=== PATIENT | female | born 1960 | race Caucasian/White ===

== ENCOUNTER 2020-12-08 10:36 | Emergency (ER) | payer MEDICAID, SELFPAY ==
[2020-12-08 10:36] VITALS: BP 152/85; PULSE 98; RESP 16; TEMP 36.9; O2SAT 99; BMI 21.5
--- NOTE | 2020-12-08 11:41 | CT_ITS ---
STUDY: CT ABDOMEN AND PELVIS WITH CONTRAST REASON FOR EXAM: Female, 60 years old. Diffuse upper abd pain. PRIOR APPENDECTOMY RADIATION DOSAGE (If Supplied By Facility): CTDIvol = ( 8.91 ) mGy, DLP = ( 356.98 ) mGycm TECHNIQUE: Transaxial images were obtained from the dome of the diaphragm to the symphysis pubis without oral contrast. IV 70 mL Isovue-300 was administered. Sagittal and coronal images were reconstructed. Individualized dose optimization techniques were used for this CT. COMPARISON: None. FINDINGS: The visualized lung bases are unremarkable. Coronary artery calcification. There is a 8.1 mm cyst in the inferior lateral portion of the right lobe of the liver. There is a Eber''s lobe of the liver. Normal gallbladder and extrahepatic biliary system. Normal spleen. Normal pancreas. Normal bilateral adrenal glands. Normal right kidney. Normal left kidney. Normal visualized stomach. Normal small intestine. Moderate amount of fecal material is seen in the right hemicolon. The patient is status post appendectomy. There is diffuse atherosclerotic calcification of the abdominal aorta and its major visceral branches, without a demonstrated aneurysm. Normal inferior vena cava. Normal retroperitoneum. Normal urinary bladder. Prominent venous opacification in the region of the broad ligaments bilaterally. Enlarged fibroid uterus. Normal abdominal wall. There are diffuse degenerative changes of the visualized lumbar spine. CT/Abdomen/Pelvis W IV Cont ONLY IMPRESSION: Enlarged fibroid uterus with the prominence of the venous structures in the pelvis. Eber''s lobe of the liver. The patient is status post appendectomy. Electronically Signed: Austin Ying MD at 12:56 EDT , Service support ,
--- NOTE | 2020-12-08 11:41 | ED.VIS.GI ---
HPI HPI - GI History of Present Illness Chief Complaint: Abd Pain Informant: patient Abdominal Pain/Flank Pain Onset: Weeks Context: Gradual Onset Timing: Continuous Quality: Cramping and Dull Location: Epigastric, RUQ and LUQ Current Severity: Mild Maximum Severity: Mild Nausea/Vomiting/Emesis GI Symptom: Negative for Nausea and Vomiting Diarrhea/Melena/Hematochezia GI Symptom: Negative for Diarrhea, Melena and Hematochezia Associated Symptoms Associated Symptoms: Negative for Dysuria, Frequency, Hematuria and Urgency Narrative Narrative: 60-year-old female past medical history of prior appendectomy. She is also had polypectomy before via lower endoscopy. States that week ago she had back pain was seen and a negative urinalysis was placed on naproxen. Says her back pain seemed to go away but now she is got epigastric and upper quadrant abdominal pain. She denies nausea vomiting or diarrhea. She denies fever or chills. She denies weight loss. She denies melena or hematemesis. Nothing particular makes the pain better or worse. She denies any dysuria. Prior similar symptoms: No Recent Illness/Hospitalization: No PFSH PFSH Medical History no medical history no medical history Home Medications aspirin [Aspir-Low] 81 mg PO DAILY 03/26/16 [History Last Taken Unknown] clindamycin HCl 300 mg PO [id number] #40 capsule 03/26/16 [Rx Last Taken Unknown] genistein [I-Cool] 30 mg PO DAILY 03/26/16 [History Last Taken Unknown] multivitamin [Daily Multiple Vitamin] 1 ea PO DAILY 03/26/16 [History Last Taken Unknown] Allergy/AdvReac Type Severity Reaction Status Date / Time codeine Allergy Rash Verified 12/08/20 10:38 Penicillins [PCN] Allergy Rash Verified 12/08/20 10:38 Social History Smoking Status: Current every day smoker tobacco type: cigarettes ROS ROS ED ROS Narrative Upper abdominal pain Review of Systems ROS Unobtainable: Denies due to encephalopathy Constitutional Constitutional ED: Denies chills, fever(s) or subjective ENT ENT ED: Denies ear pain Cardiovascular Cardiovascular: Denies chest pain Respiratory/Chest Respiratory/Chest: Denies cough or dyspnea Gastrointestinal Gastrointestinal: Reports abdominal pain; Denies constipation, diarrhea, melena, nausea or vomiting Genitourinary Genitourinary ED: Denies dysuria, hematuria or urinary frequency Musculoskeletal Musculoskeletal: Denies myalgias Integumentary Denies rash Neurologic Neurologic: Denies headache(s) Psychiatric Psychiatric: Denies depression Endocrine Endocrinology: Denies polyuria Hematologic/Lymphatic Hematologic/Lymphatic: Denies easy bruising Allergic/Immunologic Allergic/Immunologic ED: Denies urticaria EXAM Physical Exam Narrative Exam Narrative: Middle-aged female no acute distress vital signs stable afebrile. HEENT exam unremarkable. Moist with memories. Neck nontender no lymphadenopathy. Lungs clear to auscultation bilaterally. Heart regular rhythm no murmur. Abdomen soft nondistended normal bowel sounds no peritoneal signs. She points to her upper quadrant and epigastric region of her abdomen with tenderness but is not reproducible. There is no pulsatile mass. No signs of obstruction or distention. No hernia. Moving all 4 extremities. Calves are nontender without edema. Back nontender. Neurologically she is awake and alert. Const Vital Signs: 12/08/20 10:36 Temperature 98.4 F Temperature Source Temporal Pulse Rate 98 Respiratory Rate 16 Blood Pressure 152/85 H Blood Pressure Mean 107 Pulse Ox 99 Oxygen Delivery Method Room Air HEENT Reports moist mucous membranes normocephalic and atraumatic; Negative for trauma or tenderness Eyes PERRL and EOMs intact bilaterally Neck no lymphadenopathy, supple and no JVD General: Negative for tenderness Resp normal respiratory effort and clear to auscultation bilaterally Auscultation: Negative for rales, rhonchi or wheezes Cardio regular rate, regular rhythm, S1 normal heart sound, S2 normal heart sound and no murmurs GI non-tender, non-distended and no masses Inspection: Negative for abdominal distention Auscultation: normoactive bowel sounds Palpation: soft; Negative for tender, guarding, rigid or rebound tenderness present Back/Spine no CVA tenderness Neuro CN's II-XII intact bilaterally and moves all extremities Sensorium / Orientation: alert, oriented to person, oriented to place, oriented to time and orientation impaired; Negative for confused, lethargic or stuporous Motor Exam: strength 5/5 throughout Psych mental status grossly normal Skin Lesions: no lesions Rashes: no rashes MDM MDM MDM Narrative Medical decision making narrative: Work-up and CAT scan.Older female with upper abdominal pain is not reproducible. Repeat exam patient doing well at 1:07 PM. Abdomen benign. We went over all of her test results and she will be discharged home. Lab Data Attestation: I reviewed the patient's lab results. Lab results narrative: CBC White count 9. Hemoglobin 15. Electrolytes normal gap of 4 normal creatinine. Normal liver enzymes. Normal lipase at 73. Urinalysis normal no whites or red cells. No bacteria nor nitrates. Labs: Laboratory Results - last 24 hr 12/08/20 12/08/20 12/08/20 11:03 11:47 11:47 WBC 9.6 RBC 4.38 Hgb 15.1 H Hct 43.6 MCV 99.5 H MCH 34.5 H MCHC 34.6 RDW Std Deviation 45.2 H RDW Coeff of Jordy 12.3 Plt Count 297 MPV 8.9 Immature Gran % (Auto) 0.400 Neut % (Auto) 63.4 Lymph % (Auto) 27.3 [place] % (Auto) 7.5 Eos % (Auto) 1.1 Baso % (Auto) 0.3 Absolute Neuts (auto) 6.1 Absolute Lymphs (auto) 2.63 Nucleated RBC % 0 Sodium 140 Potassium 4.3 Chloride 108 H Carbon Dioxide 28.0 Anion Gap 4 L BUN 6 L Creatinine 0.66 Estim Creat Clear Calc 73.48 Est GFR (MDRD) Af Amer 119 Est GFR (MDRD) Non-Af 98 BUN/Creatinine Ratio 9.1 L Glucose 107 H Calcium 9.8 Total Bilirubin 0.80 AST 13 L ALT 19 Alkaline Phosphatase 91 Total Protein 7.6 Albumin 4.2 Globulin 3.4 Albumin/Globulin Ratio 1.2 Lipase 73 Urine Color Yellow Urine Clarity Clear Urine pH 6.5 Ur Specific [place] 1.010 Urine Protein Negative Urine Glucose (UA) Normal Urine Ketones Negative Urine Occult Blood Negative Urine Nitrite Negative Urine Bilirubin Negative Urine Urobilinogen Normal Ur Leukocyte Esterase Negative Urine RBC 0 SEEN Urine WBC 0 SEEN Ur Squamous Epith Cells 0 SEEN Urine Bacteria 0 SEEN Urine Mucus 0 SEEN Radiography Diagnostic Testing: Clinical Impression(s) from Imaging Studies Abdomen/Pelvis CT 12/08/20 11:41 IMPRESSION: Enlarged fibroid uterus with the prominence of the venous structures in the pelvis. Eber''s lobe of the liver. The patient is status post appendectomy. Electronically Signed: Austin Ying MD at 12:56 EDT , Service support , Discharge Plan Triage Chief Complaint: Abd Pain ED Provider: Tin Alston Dx/Rx/DC Orders Clinical Impression: Abdominal pain Instructions: Abdominal Pain Prescriptions: No Action multivitamin [Daily Multiple] 1 EACH tablet 1 ea PO DAILY RF: 0 aspirin [Aspir-Low] 81 MG Tablet.Dr 81 mg PO DAILY RF: 0 genistein [i-Cool] 30 MG tablet 30 mg PO DAILY RF: 0 clindamycin HCl 300 MG capsule 300 mg PO [id number] Qty: 40 RF: 0 Primary Care Provider: Last Squires Referrals: Last Squires MD [Primary Care Provider] - 3-5 Days if not improving Activity Restrictions/Additional Instructions: No specific cause of your abdominal pain. Follow-up with your primary care physician as needed. Disposition Disposition: Home, Self Care
[2020-12-08 11:53] LABS: Bacteria 0 SEEN /hpf (None Seen); Mucous, Urine 0 SEEN /hpf (<or=2+); Red Blood Cells-Urine 0 SEEN /hpf (0-5); Squamous Epithelial Cells - UA 0 SEEN /hpf (5-10); White Blood Cells 0 SEEN /hpf (0-5)
[2020-12-08 11:54] LABS: Absolute Lymphocyte Count 2.63 X10^3/uL (0.83-4.51); Absolute Neutrophil Count 6.1 X10^3/uL (2.0-7.7); Basophil# 0.03 X10^3/uL; Basophil% 0.3 % (0-1); Eosinophil# 0.11 X10^3/uL; Eosinophils% 1.1 % (0-5); Hematocrit 43.6 % (37-47); Hemoglobin 15.1 g/dL (12.0-15.0); Lymphocyte # 2.63 X10^3/ul (0.83-4.51); Lymphocyte % 27.3 % (19-41); Mean Corp Hgb Conc 34.6 g/dL (32-36); Mean Corpuscular Hgb 34.5 pg (27.0-32.0); Mean Corpuscular Volume 99.5 fL (81-99); Mean Platelet Vol. 8.9 fl (6.2-12.0); Monocyte# 0.72 X10^3/uL; Monocyte% 7.5 % (0-10); NRBC Flagged by Analyzer 0 % (0-5); Neutrophil # 6.11 X10^3/uL (2.7-7.7); Neutrophil % 63.4 % (47-70); Platelet Count 297 K/mm3 (150-450); RBC Distribution Width CV 12.3 % (11.6-14.6); RBC Distribution Width SD 45.2 fl (35.1-43.9); Red Blood Count 4.38 M/mm3 (4.2-5.4); White Blood Count 9.6 K/mm3 (4.4-11.0)
[2020-12-08 11:54] LABS: Color, Urine Yellow (Yellow); Glucose, Dipstick Normal (Normal); Ketone-Dipstick Negative (Negative); Leukocyte Esterase-Dipstick Negative /ul (Negative); Nitrite-Dipstick Negative (Negative); Occult Blood-Urine Negative /ul (Negative); Protein-Dipstick Negative (Negative); Urine Bilirubin Dipstick Negative (Negative); Urine Clarity Clear (Clear); Urine Urobilinogen Normal (Normal); Urine pH 6.5 (5.0 - 8.0)
[2020-12-08 12:09] LABS: ALB/GLOB Ratio 1.2 RATIO (0.9-2.4); AST(SGOT) 13 U/L (15-37); Alanine Aminotransfer ALT/SGPT 19 U/L (13-56); Albumin, Serum 4.2 g/dL (3.2-5.0); Alkaline Phosphatase 91 U/L (45-117); Anion Gap 4 (5-15); BUN 6 mg/dL (7-18); BUN/Creat Ratio 9.1 RATIO (10-20); Calcium,Total 9.8 mg/dL (8.5-10.1); Chloride 108 mmol/L (98-107); Creatinine, Serum 0.66 mg/dL (0.55-1.02); EST Glomerular Filtration Rate 98 mL/min (>60); Est Glom Filt Rate - Afr Amer 119 mL/min (>60); Estimated Creatinine Clearance 73.48 ml/min; Globulin 3.4 g/dL (2.2-4.2); Glucose 107 mg/dL (74-106); Lipase 73 U/L (73-393); Potassium 4.3 mmol/L (3.5-5.1); Protein, Total 7.6 g/dL (6.4-8.2); Sodium Level 140 mmol/L (136-145)
[2020-12-08 13:15] VITALS: BP 122/81; PULSE 85; RESP 16; O2SAT 96
--- NOTE | 2020-12-08 13:16 | ED.RN ---
REVIEWED D/C INSTRUCTIONS, FOLLOW UP CARE, AND S/S THAT WOULD WARRANT A RETURN TO THE ED WITH PT. PT VERBALIZED AN UNDERSTANDING AND DENIES FURTHER QUESTIONS FOR THIS RN. PT SKIN P/W/D, RESP EVEN AND UNLABORED, PT A&O X 3, NO DISTRESS NOTED. PT AMBULATED OUT OF ED, GAIT STEADY.
== END 2020-12-08 13:16 | disposition home or self-care (01) ==
PROVIDERS: Emergency Provider Emergency Medicine; PCP Family Medicine
DX: R10.10 Upper abdominal pain, unspecified (principal); F17.210 Nicotine dependence, cigarettes, uncomplicated; Z90.49 Acquired absence of other specified parts of digestive tract
CPT/HCPCS: 74177; 80053; 81001; 83690; 85025; 99283; Q9967; A4216

== ENCOUNTER 2022-05-31 10:17 | Emergency (ER) | payer MEDICAID, SELFPAY ==
[2022-05-31 10:19] VITALS: BP 147/90; PULSE 80; RESP 18; TEMP 35.9; O2SAT 96; BMI 20.9
--- NOTE | 2022-05-31 10:33 | EDS_ITS ---
HPI History of Present Illness Chief Complaint: Upper Extremity Injury Informant: patient Narrative Narrative: Patient presents with a bump on her left wrist which she has had for about 4 months. She states it seems to grow at times. Is never gone completely away. It is a little bit sore when she presses on it. No fevers chills. No drainage. No erythema warmth. No known trauma. She has not yet seen anyone for this. It is worse with frequent use of the wrist and pressing on it. It is better with rest. [facility] Medical History (Updated 05/31/22 @ 10:46 by Mali Gonzales) Wrist pain Home Medications aspirin 81 mg tablet,delayed release (Aspir-Low) 81 mg PO DAILY 03/26/16 [History Last Taken Unknown] clindamycin HCl 300 mg capsule 300 mg PO [id number] ##40 03/26/16 [Rx Last Taken Unknown] genistein 30 mg tablet (i-Cool) 30 mg PO DAILY 03/26/16 [History Last Taken Unknown] multivitamin (Daily Multiple tablet) 1 ea PO DAILY 03/26/16 [History Last Taken Unknown] Allergy/AdvReac Type Severity Reaction Status Date / Time codeine Allergy Rash Verified 05/31/22 10:21 Penicillins [PCN] Allergy Rash Verified 05/31/22 10:21 Social History Smoking Status: Current every day smoker tobacco type: cigarettes ROS ROS ED Constitutional Constitutional ED: Denies chills or fever(s) Gastrointestinal Gastrointestinal: Denies nausea or vomiting Musculoskeletal Musculoskeletal: Reports other Details: See history of present illness. Integumentary Denies abscess, Abrasions or rash Neurologic Neurologic: Denies paresthesias or weakness Hematologic/Lymphatic Hematologic/Lymphatic: Denies easy bleeding, easy bruising or lymphadenopathy EXAM Physical Exam Narrative Exam Narrative: Patient awake alert no acute distress. HEENT shows no rash or trauma Cardiorespiratory breathing is easy and unlabored. No audible wheezing. Extremities there is no peripheral edema or swelling. She does have a firm area over the distal lateral radius a little lateral to Kimber's tubercle. This is about 1 cm or less around. It does feel firm but is mobile on top of the bone. It feels most consistent with a ganglion cyst. No real skin changes over it. No sign of infection or erythema. No limitation of motion but any motion about that area does increase the soreness slightly. Skin shows no notable skin changes. Const Vital Signs: 05/31/22 10:19 Temperature 96.6 F L Temperature Source Temporal Pulse Rate 80 Respiratory Rate 18 Blood Pressure 147/90 H Blood Pressure Mean 109 Pulse Ox 96 Oxygen Delivery Method Room Air MDM MDM MDM Narrative Medical decision making narrative: My independent interpretation of the patient's three-view x-ray left wrist shows no sign of acute fracture dislocation or bony abnormality. Final reading is also negative. I think this does represent ganglion cyst. Patient is comfortable following up. I explained that there is really no intervening treatment that is effective. She tried some splinting but it just did not help and it did not work with her work situation. We discussed reasons to return. Discharge Plan Triage Chief Complaint: Upper Extremity Injury ED Provider: Jaun Lewis Dx/Rx/DC Orders Clinical Impression: Ganglion cyst of dorsum of left wrist Instructions: ED Ganglion Cyst Prescriptions: No Action multivitamin [Daily Multiple] 1 EACH tablet 1 ea PO DAILY aspirin [Aspir-Low] 81 MG tablet,delayed release (DR/EC) 81 mg PO DAILY genistein [i-Cool] 30 MG tablet 30 mg PO DAILY clindamycin HCl 300 MG capsule 300 mg PO [id number] Qty: 40 0RF Primary Care Provider: Last Squires Referrals: Last Squires MD [Primary Care Provider] - Keith Kaur DO [Med Staff - Active Staff] - 1 Week Disposition Disposition: Home, Self Care
--- NOTE | 2022-05-31 10:38 | RAD_ITS ---
STUDY: X-RAY - LEFT WRIST REASON FOR EXAM: Female, 61 years old. Pain, swollen area distal radius TECHNIQUE: 3 view(s) of the wrist were obtained. COMPARISON: None. FINDINGS: Normal visualized distal radius and ulna. Normal radiocarpal articulation. Normal distal radioulnar articulation. Normal carpal bones. Normal carpal articulations. Normal carpometacarpal articulation of the thumb. Normal second through fifth carpometacarpal articulations. Normal visualized metacarpal bones. The soft tissue structures are unremarkable. RAD/Wrist min 3 Views IMPRESSION: Normal x-ray examination of the wrist. Electronically Signed: Austin Ying MD at 10:54 EDT ,
== END 2022-05-31 11:11 | disposition home or self-care (01) ==
PROVIDERS: Emergency Provider Emergency Medicine; PCP Family Medicine; Visit Provider Emergency Medicine
DX: M67.432 Ganglion, left wrist (principal); F17.210 Nicotine dependence, cigarettes, uncomplicated; Z79.82 Long term (current) use of aspirin
CPT/HCPCS: 73110; 99282

== ENCOUNTER 2022-08-25 13:04 | Emergency (ER) | payer MEDICAID, SELFPAY ==
[2022-08-25 13:05] VITALS: BP 131/88; PULSE 85; RESP 18; TEMP 36.3; O2SAT 98; BMI 20.9
--- NOTE | 2022-08-25 13:26 | EX.ED.DYSGE1 ---
HPI <ARACELI Zamora - Last Filed: 08/25/22 15:31> History of Present Illness Chief Complaint: Flank Pain Narrative Narrative: Patient 61-year-old female with history of anxiety who smokes 1 pack/day drinks 3-4 times a week presents to the emergency department for 3 to 4 days of left flank pain that radiates down the left leg. Patient states she does have history of sciatica however does not feel like this. Last week she states that she had a gastrointestinal illness. She is no longer having vomiting, nausea, diarrhea. Patient states that most of the pain is worse at nighttime when it starts to her left flank, left lower back to raise down her left leg. Patient's her left leg feels achy and she has difficulty falling asleep. Today she was on her feet at work, she decided come to get checked out. She denies any fever or chills. Denies any nausea vomiting. Denies a history of any kidney stone. PFS <ARACELI Zamora - Last Filed: 08/25/22 15:31> [facility] Medical History (Updated 08/25/22 @ 15:40 by Reva Rae) Anxiety Wrist pain Home Medications multivitamin (Daily Multiple tablet) 1 ea PO DAILY 03/26/16 [History Last Taken Unknown] paroxetine HCl 10 mg tablet 10 mg PO 06/28/22 [History Last Taken Unknown] cyclobenzaprine 10 mg tablet 10 mg PO TID PRN Muscle Spasm #15 TABLETS 08/25/22 [Rx Last Taken Unknown] naproxen 500 mg tablet (Naprosyn) 500 mg PO BID PRN pain #20 tabs 08/25/22 [Rx Last Taken Unknown] Allergy/AdvReac Type Severity Reaction Status Date / Time codeine Allergy Rash Verified 08/25/22 13:07 Penicillins [PCN] Allergy Rash Verified 08/25/22 13:07 Family History (Updated 06/28/22 @ 15:25 by Alexandrea Zurita) Mother Breast cancer Surgical History History of History of carpal tunnel release Hx of appendectomy Social History (Updated 06/28/22 @ 15:25 by Alexandrea Zurita) household members: spouse Smoking Status: Current every day smoker tobacco type: cigarettes alcohol intake: current ROS <JACKSON ZamoraC - Last Filed: 08/25/22 15:31> ROS ED ROS Narrative Constitutional: Negative for fever, chills, weight loss, weakness Eyes: Negative for vision loss, vision change, double vision ENT: Negative for any sore throat, ear pain, congestion Cardiovascular: Negative for any chest pain, tightness, palpitations Respiratory: Negative for any cough, sputum production, hemoptysis, dyspnea, dyspnea on exertion, orthopnea Gastrointestinal: Negative for any abdominal pain, nausea, vomiting, diarrhea, constipation, blood in stool, blood in vomit : Negative for any urinary frequency, retention, blood in urine. Positive for dysuria, bladder pressure Muscle skeletal: Negative for any muscle joint pain, stiffness, myalgias, arthralgias, neck pain. Positive for left back pain that raise on the left leg. Neurological: Negative for any headache, syncope, numbness or tingling, dizziness Skin: Negative for any rashes, lumps, itching, abrasions, lacerations Psychiatric: Negative for any depression, anxiety, stress, suicidal ideation, homicidal ideation Hematologic: Negative for any easy bruising, excessive bruising, easy bleeding Allergies: Negative for any eczema, hives, rash EXAM <ARACELI Zamora - Last Filed: 08/25/22 15:31> Physical Exam Narrative Exam Narrative: Vital signs reviewed. HEET: Head normocephalic atraumatic, TMs clear bilaterally. Posterior pharynx is clear, moist mucous membranes. Nares clear bilaterally. Neck: Supple with no lymphadenopathy or tenderness. No signs of meningismus, negative jolt sign. Cardiac: Regular rate and rhythm no murmurs gallops or rubs, equal peripheral pulses bilaterally. Respiratory: Lungs clear to auscultation bilaterally. No chest tenderness. Abdomen: Soft, nontender, nondistended. No abdominal bruit or pulsatile masses. No hepatosplenomegaly Extremities: No peripheral edema, no signs of gross trauma or deformity. Active full range of motion of all extremities. Neuro: Cranial nerves II through XII intact, no focal neurological deficits. Skin: Clean dry and intact with no rash, purpura, petechiae, vesicles or pustules. Backs/flank: No CVA tenderness, no midline spinal tenderness, no deformity. Positive for pain the left mid back, left lower spine, positive straight leg. Pain to the left buttock during straight leg test. No red flag signs. Psych: Normal mood and affect. No SI, HI or acute psychosis. Const Vital Signs: 08/25/22 13:05 08/25/22 15:42 08/25/22 13:04 Temperature 97.3 F L Temperature Source Temporal Pulse Rate 85 85 Respiratory Rate 18 19 H Respiratory Effort Normal Respiratory Pattern Normal Blood Pressure 131/88 H 130/79 H Blood Pressure Mean 102 Pulse Ox 98 98 Oxygen Delivery Method Room Air <Dr. Jace Olivo DO - Last Filed: 08/25/22 16:51> Physical Exam Const Vital Signs: 08/25/22 13:05 08/25/22 15:42 08/25/22 13:04 Temperature 97.3 F L Temperature Source Temporal Pulse Rate 85 85 Respiratory Rate 18 19 H Respiratory Effort Normal Respiratory Pattern Normal Blood Pressure 131/88 H 130/79 H Blood Pressure Mean 102 Pulse Ox 98 98 Oxygen Delivery Method Room Air MDM <ARACELI Zamora - Last Filed: 08/25/22 15:31> [facility] Lab Data Labs: Laboratory Results - last 24 hr 08/25/22 08/25/22 13:10 13:35 WBC 8.8 RBC 3.99 L Hgb 13.5 Hct 40.8 MCV 102.3 H MCH 33.8 H MCHC 33.1 RDW Std Deviation 49.6 H RDW Coeff of Ojrdy 13.1 Plt Count 261 MPV 8.8 Immature Gran % (Auto) 0.300 Neut % (Auto) 51.1 Lymph % (Auto) 39.8 [place] % (Auto) 7.2 Eos % (Auto) 1.3 Baso % (Auto) 0.3 Absolute Neuts (auto) 4.5 Absolute Lymphs (auto) 3.50 Nucleated RBC % 0 Sodium 139 Potassium 3.8 Chloride 107 Carbon Dioxide 27.0 Anion Gap 5 BUN 10 Creatinine 0.79 Estim Creat Clear Calc 57.86 Est GFR (MDRD) Af Amer 96 Est GFR (MDRD) Non-Af 79 BUN/Creatinine Ratio 12.7 Glucose 92 Calcium 9.0 Urine Color Yellow Urine Clarity Clear Urine pH 6.0 Ur Specific [place] 1.030 Urine Protein Negative Urine Glucose (UA) Normal Urine Ketones 5 H Urine Occult Blood Negative Urine Nitrite Negative Urine Bilirubin Negative Urine Urobilinogen Normal Ur Leukocyte Esterase 25 H Urine RBC 0 SEEN Urine WBC 0-5 SEEN Ur Squamous Epith Cells 0 SEEN Urine Bacteria 0 SEEN Urine Mucus 0 SEEN Radiography Diagnostic Testing: Clinical Impression(s) from Imaging Studies Abdomen/Pelvis CT 08/25/22 13:49 IMPRESSION: Stable small cyst in the right lobe of the liver. Eber''s lobe of the liver. Sigmoid diverticulosis. No evidence of a obstructive uropathy at this time. Electronically Signed: Austin Ying MD at 14:25 EDT , Treatment and Re-Evaluation :: Patient appears generally well, patient appears nontoxic, vital signs are stable. Patient presents to the emergency department with left back pain that raise to the left leg. Physical examination was consistent with muscle skeletal strain, sciatica. However patient does have pain and pressure in her bladder, she did receive a CT scan to ensure there is no obstructing uropathy. Patient did receive laboratory values, CBC was unremarkable, chemistries are unremarkable, urinalysis was negative for any infection, no blood noted. Patient CT scan of the abdomen pelvis showed stable small cyst of the right lobe of the liver, Eber's lobe of the liver. Sigmoid diverticulosis. No evidence of an obstructive uropathy at this time. At this time, patient be diagnosed with muscle strain, sciatica. She will be given a prescription for naproxen as well as Flexeril. She instructed to perform gentle stretching, ice and heat. There were no red flag signs, no evidence of suspect any cauda equina, spinal abscess. She will follow-up with her primary care physician on August 30. She instructed return for any worsening symptoms <Dr. aJce Olivo, DO - Last Filed: 08/25/22 16:51> [facility] Lab Data Labs: Laboratory Results - last 24 hr 08/25/22 08/25/22 13:10 13:35 WBC 8.8 RBC 3.99 L Hgb 13.5 Hct 40.8 MCV 102.3 H MCH 33.8 H MCHC 33.1 RDW Std Deviation 49.6 H RDW Coeff of Jordy 13.1 Plt Count 261 MPV 8.8 Immature Gran % (Auto) 0.300 Neut % (Auto) 51.1 Lymph % (Auto) 39.8 [place] % (Auto) 7.2 Eos % (Auto) 1.3 Baso % (Auto) 0.3 Absolute Neuts (auto) 4.5 Absolute Lymphs (auto) 3.50 Nucleated RBC % 0 Sodium 139 Potassium 3.8 Chloride 107 Carbon Dioxide 27.0 Anion Gap 5 BUN 10 Creatinine 0.79 Estim Creat Clear Calc 57.86 Est GFR (MDRD) Af Amer 96 Est GFR (MDRD) Non-Af 79 BUN/Creatinine Ratio 12.7 Glucose 92 Calcium 9.0 Urine Color Yellow Urine Clarity Clear Urine pH 6.0 Ur Specific [place] 1.030 Urine Protein Negative Urine Glucose (UA) Normal Urine Ketones 5 H Urine Occult Blood Negative Urine Nitrite Negative Urine Bilirubin Negative Urine Urobilinogen Normal Ur Leukocyte Esterase 25 H Urine RBC 0 SEEN Urine WBC 0-5 SEEN Ur Squamous Epith Cells 0 SEEN Urine Bacteria 0 SEEN Urine Mucus 0 SEEN Radiography Diagnostic Testing: Clinical Impression(s) from Imaging Studies Abdomen/Pelvis CT 08/25/22 13:49 IMPRESSION: Stable small cyst in the right lobe of the liver. Eber''s lobe of the liver. Sigmoid diverticulosis. No evidence of a obstructive uropathy at this time. Electronically Signed: Austin Ying MD at 14:25 EDT , Treatment and Re-Evaluation :: Patient appears generally well, patient appears nontoxic, vital signs are stable. Patient presents to the emergency department with left back pain that raise to the left leg. Physical examination was consistent with muscle skeletal strain, sciatica. However patient does have pain and pressure in her bladder, she did receive a CT scan to ensure there is no obstructing uropathy. Patient did receive laboratory values, CBC was unremarkable, chemistries are unremarkable, urinalysis was negative for any infection, no blood noted. Patient CT scan of the abdomen pelvis showed stable small cyst of the right lobe of the liver, Eber's lobe of the liver. Sigmoid diverticulosis. No evidence of an obstructive uropathy at this time. At this time, patient be diagnosed with muscle strain, sciatica. She will be given a prescription for naproxen as well as Flexeril. She instructed to perform gentle stretching, ice and heat. There were no red flag signs, no evidence of suspect any cauda equina, spinal abscess. She will follow-up with her primary care physician on August 30. 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 I perform my own [id number] evaluation. I agree with the plan of work-up. Nontraumatic left flank pain for the last 4 days. Constant waxing waning no injuries. No worsening pain with movement. No urinary symptoms. No history of kidney stones. Exam tender left flank there is no rash. No abdominal tenderness. Nontoxic. Patient labs drawn urine ordered flank scan for further evaluation. Negative. Urine with 25 leukocytes asymptomatic culture sent. Patient to monitor for rash. Prescription for symptom control to use needed. Outpatient follow-up. Discharge Plan Triage Chief Complaint: Flank Pain ED Midlevel Provider: Sarmad Worthington ED Provider: Jace Olivo Dx/Rx/DC Orders Clinical Impression: Sciatica, Acute lumbar myofascial strain Instructions: ED Sciatica Prescriptions: New naproxen [Naprosyn] 500 mg tablet 500 mg PO BID PRN (Reason: pain) Qty: 20 0RF cyclobenzaprine 10 mg tablet 10 mg PO TID PRN (Reason: Muscle Spasm) Qty: 15 0RF No Action paroxetine HCl 10 mg tablet 10 mg PO multivitamin [Daily Multiple] 1 EACH tablet 1 ea PO DAILY Primary Care Provider: Last Squires Referrals: Last Squires MD [Primary Care Provider] - Activity Restrictions/Additional Instructions: Please return for any worsening symptoms. Ensure to perform gentle stretching. Disposition Disposition: Home, Self Care Discharge Date/Time: 08/25/22 15:49
[2022-08-25 13:46] LABS: Absolute Neutrophil Count 4.5 X10^3/uL (2.0-7.7); Basophil# 0.03 X10^3/uL; Basophil% 0.3 % (0-1); Eosinophil# 0.11 X10^3/uL; Eosinophils% 1.3 % (0-5); Hematocrit 40.8 % (37-47); Hemoglobin 13.5 g/dL (12.0-15.0); Lymphocyte % 39.8 % (19-41); Mean Corp Hgb Conc 33.1 g/dL (32-36); Mean Corpuscular Hgb 33.8 pg (27.0-32.0); Mean Corpuscular Volume 102.3 fL (81-99); Mean Platelet Vol. 8.8 fl (6.2-12.0); Monocyte# 0.63 X10^3/uL; Monocyte% 7.2 % (0-10); NRBC Flagged by Analyzer 0 % (0-5); Neutrophil # 4.49 X10^3/uL (2.7-7.7); Neutrophil % 51.1 % (47-70); Platelet Count 261 K/mm3 (150-450); RBC Distribution Width CV 13.1 % (11.6-14.6); RBC Distribution Width SD 49.6 fl (35.1-43.9); Red Blood Count 3.99 M/mm3 (4.2-5.4); White Blood Count 8.8 K/mm3 (4.4-11.0)
--- NOTE | 2022-08-25 13:49 | CT_ITS ---
STUDY: CT ABDOMEN AND PELVIS WITHOUT CONTRAST REASON FOR EXAM: Female, 61 years old. LEFT FLANK PAIN X 4 DAYS RADIATION DOSAGE (If Supplied By Facility): CTDIvol = ( 6.04 ) mGy, DLP = ( 268.77 ) mGycm TECHNIQUE: Transaxial images were obtained from the dome of the diaphragm to the symphysis pubis without oral contrast, and without intravenous contrast. Sagittal and coronal images were reconstructed. Individualized dose optimization techniques were used for this CT. COMPARISON: Comparison is made with prior study December 08, 2020. FINDINGS: The visualized lung bases are unremarkable. Coronary artery calcification. 7.9 mm cyst in the inferior aspect of the right lobe liver. Eber''s lobe of the right lobe of the liver. Normal gallbladder and extrahepatic biliary system. Normal spleen. Normal pancreas. Normal bilateral adrenal glands. Normal right kidney. Normal left kidney. Normal visualized stomach. Normal small intestine. There are multiple colonic diverticula consistent with diverticulosis. The appendix is visualized and appears normal. There is diffuse atherosclerotic calcification of the abdominal aorta, without a demonstrated aneurysm. Normal inferior vena cava. Normal retroperitoneum. Normal urinary bladder. Normal abdominal wall. There are degenerative changes of the visualized lumbar spine. CT/Abdomen/Pelvis without Cont IMPRESSION: Stable small cyst in the right lobe of the liver. Eber''s lobe of the liver. Sigmoid diverticulosis. No evidence of a obstructive uropathy at this time. Electronically Signed: Austin Ying MD at 14:25 EDT ,
[2022-08-25] MEDS: Ketorolac 15 MG/ML Vial IV (14:01)
[2022-08-25 14:15] LABS: Anion Gap 5 (5-15); BUN 10 mg/dL (7-18); BUN/Creat Ratio 12.7 RATIO (10-20); Chloride 107 mmol/L (98-107); Creatinine, Serum 0.79 mg/dL (0.55-1.02); EST Glomerular Filtration Rate 79 mL/min (>60); Est Glom Filt Rate - Afr Amer 96 mL/min (>60); Estimated Creatinine Clearance 57.86 ml/min; Glucose 92 mg/dL (74-106); Potassium 3.8 mmol/L (3.5-5.1); Sodium Level 139 mmol/L (136-145)
[2022-08-25 14:38] LABS: Bacteria 0 SEEN /hpf (None Seen); Mucous, Urine 0 SEEN /hpf (<or=2+); Red Blood Cells-Urine 0 SEEN /hpf (0-5); Squamous Epithelial Cells - UA 0 SEEN /hpf (5-10)
[2022-08-25 14:54] LABS: Color, Urine Yellow (Yellow); Glucose, Dipstick Normal (Normal); Ketone-Dipstick 5 mg/dl (Negative); Leukocyte Esterase-Dipstick 25 /ul (Negative); Nitrite-Dipstick Negative (Negative); Occult Blood-Urine Negative /ul (Negative); Protein-Dipstick Negative (Negative); Urine Bilirubin Dipstick Negative (Negative); Urine Clarity Clear (Clear); Urine Urobilinogen Normal (Normal)
[2022-08-25 15:19] LABS: White Blood Cells 0-5 SEEN /hpf (0-5)
[2022-08-25 15:42] VITALS: BP 130/79; PULSE 85; RESP 19; O2SAT 98
== END 2022-08-25 15:49 | disposition home or self-care (01) ==
PROVIDERS: Nurse Practitioner; Emergency Provider Emergency Medicine; PCP Family Medicine; Referring Provider Emergency Medicine; Visit Provider Emergency Medicine
DX: S39.012A Strain of muscle, fascia and tendon of lower back, initial encounter (principal); M54.30 Sciatica, unspecified side; F41.9 Anxiety disorder, unspecified; F17.210 Nicotine dependence, cigarettes, uncomplicated; Z79.899 Other long term (current) drug therapy
CPT/HCPCS: 74176; 80048; 81001; 85025; 96374; 99284; A4216

== ENCOUNTER 2023-05-09 09:51 | Emergency (ER) | payer MEDICAID, SELFPAY ==
[2023-05-09 09:52] VITALS: BP 149/79; PULSE 86; RESP 18; TEMP 36.6; O2SAT 96; BMI 21.7
--- NOTE | 2023-05-09 10:08 | EX.ED.GENINJ ---
HPI History of Present Illness Chief Complaint: Fall Detail of Chief Complaint: Right chest/rib injury Informant: patient Narrative Narrative: Patient presents with right chest/rib injury that occurred Sunday evening which is 2 days ago. Patient complains of pain with deep breath and movement. She notes bruising underneath her right breast. Denies shortness of breath. Denies other injuries. She is not anticoagulated. PFSH PFSH Medical History Anxiety Wrist pain Home Medications paroxetine HCl 10 mg tablet 10 mg PO DAILY 06/28/22 [History Last Taken Unknown] amlodipine 5 mg tablet 5 mg PO DAILY 05/09/23 [History Last Taken Unknown] hydrocodone-acetaminophen 5-325mg 5mg-325mg 1 tab PO Q4H PRN PRN Pain 3 days #15 TABLETS 05/09/23 [Rx Last Taken Unknown] pantoprazole 40 mg tablet,delayed release 40 mg PO DAILY 05/09/23 [History Last Taken Unknown] Allergy/AdvReac Type Severity Reaction Status Date / Time codeine Allergy Rash Verified 05/09/23 09:52 Penicillins [PCN] Allergy Rash Verified 05/09/23 09:52 Family History Mother Breast cancer Surgical History History of History of carpal tunnel release Hx of appendectomy Social History (Updated 06/28/22 @ 15:25 by Alexandrea Zurita) household members: spouse Smoking Status: Current every day smoker tobacco type: cigarettes alcohol intake: current ROS ROS ED Review of Systems ROS Unobtainable: other Constitutional Constitutional ED: Reports lethargy; Denies chills, fever(s), sweats or weight loss Eyes Eyes: Denies blurry vision, change in vision or diplopia ENT ENT ED: Denies rhinorrhea or sore throat Cardiovascular Cardiovascular: Reports chest pain; Denies orthopnea or racing heartbeat Respiratory/Chest Respiratory/Chest: Denies cough, dyspnea, dyspnea on exertion, orthopnea or sputum Gastrointestinal Gastrointestinal: Denies abdominal pain, diarrhea, nausea or vomiting Genitourinary Genitourinary ED: Denies dysuria, hematuria or urinary frequency Musculoskeletal Musculoskeletal: Denies arthralgias, back pain, myalgias or neck pain Integumentary Denies abscess, Abrasions or rash Neurologic Neurologic: Denies headache(s) or weakness Psychiatric Psychiatric: Denies anxiety, depression or suicidal thoughts Endocrine Endocrinology: Denies polydipsia, polyphagia or polyuria Hematologic/Lymphatic Hematologic/Lymphatic: Denies easy bleeding, easy bruising or lymphadenopathy Allergic/Immunologic Allergic/Immunologic ED: Denies mouth swelling, tongue swelling or urticaria EXAM Physical Exam Const Vital Signs: 05/09/23 09:52 05/09/23 09:52 05/09/23 13:44 Temperature 97.9 F 97.4 F L Temperature Source Temporal Pulse Rate 86 86 78 Respiratory Rate 18 18 18 Blood Pressure 149/79 H 149/79 H 134/81 H Blood Pressure Mean 102 102 98 Pulse Ox 96 96 96 Oxygen Delivery Method Room Air Room Air Positive well nourished and well developed General Appearance ED: well developed and NAD HEENT Reports TM's clear and moist mucous membranes normocephalic and atraumatic; Negative for trauma or tenderness Tympanic Membrane ED: Yes TM's clear Eyes PERRL and EOMs intact bilaterally General Eye ED: Negative for pale conjunctiva or scleral icterus Neck no lymphadenopathy, supple and no JVD General: Negative for tenderness Chest Wall Negative for inspection of chest normal or palpation of chest normal Chest Narrative: Faint ecchymosis and bruising under her right breast. She does have tenderness palpation over the anterior chest wall inferior to the right breast. No crepitus or subcutaneous emphysema noted. Chest: Negative for tenderness Resp normal respiratory effort and clear to auscultation bilaterally Effort and Inspection: Negative for respiratory distress or pain with movement Auscultation: Negative for rhonchi, wheezes or diminished lung sounds Cardio regular rate, regular rhythm, S1 normal heart sound, S2 normal heart sound and no murmurs Peripheral Pulses: pulses 2+ throughout GI normal to inspection, nondistended, normoactive bowel sounds, soft to palpation, non-tender, non-distended and no masses Back/Spine no CVA tenderness and no thoracic nor lumbar tenderness Extremity normal to inspection General Extremety ED: Negative for edema General Extremity: Negative for edema Neuro oriented x3, CN's II-XII intact bilaterally, no sensory deficits noted and gait normal Sensorium / Orientation: awake, alert, oriented to person, oriented to place and oriented to time Motor Exam: strength 5/5 throughout and strength abnormal Psych mental status grossly normal Skin no rashes or lesions noted and no wounds MDM MDM MDM Narrative Medical decision making narrative: Patient presents with a fall and injury to right ribs. X-rays initially obtained read by radiology as no fractures but they did noted areas suspicious for mass right upper lobe recommended obtaining CT scan of the chest to evaluate further. I did obtain some basic labs that showed a slightly elevated white count of 13.7 with hemoglobin 14.3. Chemistries were unremarkable. CTA of the chest was obtained and showed no evidence of a mass. Patient was medicated with morphine and Zofran for pain. This point she will be discharged to home with diagnosis contusion right chest wall. She is advised to follow-up with her primary care physician 3 to 5 days. She is given a prescription for [place] for pain. Lab Data Attestation: I reviewed the patient's lab results. Labs: Laboratory Results - last 24 hr 05/09/23 11:40 WBC 13.7 H RBC 4.25 Hgb 14.3 Hct 42.4 MCV 99.8 H MCH 33.6 H MCHC 33.7 RDW Std Deviation 46.7 H RDW Coeff of Jordy 12.8 Plt Count 305 MPV 9.1 Immature Gran % (Auto) 0.400 Neut % (Auto) 71.3 H Lymph % (Auto) 19.4 [place] % (Auto) 8.0 Eos % (Auto) 0.5 Baso % (Auto) 0.4 Absolute Neuts (auto) 9.8 H Absolute Lymphs (auto) 2.66 Nucleated RBC % 0 Sodium 139 Potassium 4.0 Chloride 105 Carbon Dioxide 28.0 Anion Gap 6 BUN 5 L Creatinine 0.64 Estim Creat Clear Calc 70.54 Est GFR (MDRD) Af Amer 122 Est GFR (MDRD) Non-Af 101 BUN/Creatinine Ratio 7.9 L Glucose 110 H Calcium 9.3 Radiography Diagnostic Testing: Clinical Impression(s) from Imaging Studies Ribs w/Chest X-Ray 05/09/23 10:35 IMPRESSION: RIBS: Normal x-ray examination of the ribs. CHEST: 2.6 cm x 2.7 cm density in the medial aspect of the right upper lobe. This may represent either a focal infiltrate or possible mass. Correlation with a CT scan is recommended. Electronically Signed: Austin Ying MD at 10:52 EDT , Chest CTA 05/09/23 11:20 IMPRESSION: Hyperinflation and emphysematous changes. No mass lesion is seen. The findings on the chest x-ray most likely represents superimposition of shadows. Electronically Signed: Austin Ying MD at 12:41 EDT , Discharge Plan Triage Chief Complaint: Fall ED Provider: Rodríguez Adamson Dx/Rx/DC Orders Clinical Impression: Chest wall contusion Instructions: ED Mechanical Fall, ED Rib Contusion or Minor Fracture Prescriptions: New hydrocodone-acetaminophen [hydrocodone-acetaminophen] 5-325 mg tablet 1 tab PO Q4H PRN PRN (Reason: Pain) 3 Days Qty: 15 0RF No Action paroxetine HCl 10 mg tablet 10 mg PO DAILY amlodipine 5 mg tablet 5 mg PO DAILY pantoprazole 40 mg tablet,delayed release (DR/EC) 40 mg PO DAILY Primary Care Provider: Last Squires Referrals: Last Squires MD [Primary Care Provider] - 3-5 Days Disposition Disposition: Home, Self Care Discharge Date/Time: 05/09/23 13:47
--- NOTE | 2023-05-09 10:35 | RAD_ITS ---
STUDY: X-RAY - UNILATERAL RIBS ( RIGHT ) WITH CHEST REASON FOR EXAM: Female, 62 years old. Right anterior rib pain following a fall. TECHNIQUE - RIBS: 3 view(s) of the ribs. TECHNIQUE - CHEST: Single PA view of the chest. COMPARISON: None. FINDINGS - RIBS: Normal visualized ribs without a demonstrated fracture. FINDINGS - CHEST: There is a 2.6 cm x 2.7 cm density in the medial aspect of the right upper lobe. This may represent either focal infiltrate or possible mass. Correlation with a CT scan is recommended. There is no demonstrated pleural abnormality. Normal size heart. Normal mediastinum and radha. Normal visualized pulmonary arteries. There is atherosclerotic calcification of the aortic arch with tortuosity. There are diffuse degenerative changes of the visualized thoracic spine. Normal visualized ribs, clavicles, and shoulders. There is no demonstrated abnormality of the visualized soft tissue structures of the upper abdomen. RAD/Ribs Uni Min 3V w/PA Chest IMPRESSION: RIBS: Normal x-ray examination of the ribs. CHEST: 2.6 cm x 2.7 cm density in the medial aspect of the right upper lobe. This may represent either a focal infiltrate or possible mass. Correlation with a CT scan is recommended. Electronically Signed: Austin Ying MD at 10:52 EDT ,
--- NOTE | 2023-05-09 11:20 | CT_ITS ---
STUDY: CTA CHEST REASON FOR EXAM: Female, 62 years old. Chest mass RADIATION DOSAGE (If Supplied By Facility): CTDIvol = ( 4.24 ) mGy, DLP = ( 132.76 ) mGycm TECHNIQUE: The examination was performed with the intravenous administration of IV 75mL [id number]. Post-processing of the angiographic images was performed, with multiplanar reformation and 3D reconstruction. Individualized dose optimization techniques were used for this CT. COMPARISON: Comparison is made with prior chest radiograph done earlier today. FINDINGS: Normal enhancement of the main pulmonary artery and right and left pulmonary arteries. Normal enhancement of the bilateral peripheral pulmonary arteries. There is no demonstrated pulmonary embolism. Normal thoracic aorta and visualized great vessels. There is no demonstrated aortic dissection. There are calcifications of the coronary arteries. Normal mediastinum. Normal hilar regions. Normal visualized trachea and bronchi. The lungs are hyper expanded, with flattening of the hemidiaphragms. There is evidence of emphysematous changes more prominent in the upper lobes. Scarring with volume loss in the medial aspect of the right middle lobe. Normal pleura. Normal chest wall structures. Normal osseous structures. Normal visualized upper abdomen. CT/CTA Chest W/WO Contrast IMPRESSION: Hyperinflation and emphysematous changes. No mass lesion is seen. The findings on the chest x-ray most likely represents superimposition of shadows. Electronically Signed: Austin Ying MD at 12:41 EDT ,
[2023-05-09] MEDS: Morphine 4 MG/ML Syringe IV (11:37)
[2023-05-09] MEDS: Ondansetron 4 MG/2 ML Vial IV (11:37)
[2023-05-09 11:56] LABS: Absolute Lymphocyte Count 2.66 X10^3/uL (0.83-4.51); Absolute Neutrophil Count 9.8 X10^3/uL (2.0-7.7); Basophil# 0.05 X10^3/uL; Basophil% 0.4 % (0-1); Eosinophil# 0.07 X10^3/uL; Eosinophils% 0.5 % (0-5); Hematocrit 42.4 % (37-47); Hemoglobin 14.3 g/dL (12.0-15.0); Lymphocyte # 2.66 X10^3/ul (0.83-4.51); Lymphocyte % 19.4 % (19-41); Mean Corp Hgb Conc 33.7 g/dL (32-36); Mean Corpuscular Hgb 33.6 pg (27.0-32.0); Mean Corpuscular Volume 99.8 fL (81-99); Mean Platelet Vol. 9.1 fl (6.2-12.0); Monocyte# 1.09 X10^3/uL; NRBC Flagged by Analyzer 0 % (0-5); Neutrophil # 9.75 X10^3/uL (2.7-7.7); Neutrophil % 71.3 % (47-70); Platelet Count 305 K/mm3 (150-450); RBC Distribution Width CV 12.8 % (11.6-14.6); RBC Distribution Width SD 46.7 fl (35.1-43.9); Red Blood Count 4.25 M/mm3 (4.2-5.4); White Blood Count 13.7 K/mm3 (4.4-11.0)
[2023-05-09 12:02] LABS: Anion Gap 6 (5-15); BUN 5 mg/dL (7-18); BUN/Creat Ratio 7.9 RATIO (10-20); Calcium,Total 9.3 mg/dL (8.5-10.1); Chloride 105 mmol/L (98-107); Creatinine, Serum 0.64 mg/dL (0.55-1.02); EST Glomerular Filtration Rate 101 mL/min (>60); Est Glom Filt Rate - Afr Amer 122 mL/min (>60); Estimated Creatinine Clearance 70.54 ml/min; Glucose 110 mg/dL (74-106); Sodium Level 139 mmol/L (136-145)
[2023-05-09 13:44] VITALS: BP 134/81; PULSE 78; RESP 18; TEMP 36.3; O2SAT 96
== END 2023-05-09 13:47 | disposition home or self-care (01) ==
PROVIDERS: Emergency Provider Emergency Medicine; PCP Family Medicine; Visit Provider Emergency Medicine
DX: S20.20XA Contusion of thorax, unspecified, initial encounter (principal); F41.9 Anxiety disorder, unspecified; Z79.899 Other long term (current) drug therapy; F17.210 Nicotine dependence, cigarettes, uncomplicated; Z90.49 Acquired absence of other specified parts of digestive tract; X58.XXXA Exposure to other specified factors, initial encounter
CPT/HCPCS: 71101; 71275; 80048; 85025; 96374; 96375; 99283; Q9967; A4216; J2405

== ENCOUNTER 2023-12-05 07:55 | Day surgery (SDC) | payer MEDICAID, SELFPAY ==
[2023-12-05] VITALS (8 sets, daily range): BP systolic 118–122; BP diastolic 71–82; PULSE 57–74; RESP 12–16; TEMP 36.1–36.6; O2SAT 95–100; BMI 20.8
--- NOTE | 2023-12-05 | IMM_PTH ---
PATHOLOGY RESULTS PATIENT: OFELIA CORONADO LOC: [facility] – [place] U#:[id number] AGE/SX: 63/F ROOM: RE12/05/[address]: Dr. Sumit Emerson MD : 1960 BED: DIS: 12/05/2023 SPEC #: [id number] RECD: 12/10/23 11:56 STATUS: VISH REQ #: [id number] CARLITA: 12/05/23 00:[address]: Sumit Emerson DEPT: IMMUNOHISTOCHEMISTRY RECD BY: Mir Valverde ENTERED: 12/10/23 11:57 SP TYPE: IMMUNO OTHR DR: Adeola Ge, DENTAL THERAPIST-Lionel Tissues: Axillary lymph node, NOS Right breast, NOS Procedures: CK8 (initial) SMA (add) Calponin-1(initial) Pankeratin (add) PHYSICIAN & INSTITUTION [place] [id number] SPECIMEN INFORMATION: Tissue Source: A- Right axillary sentinel lymph node biopsy, B- Right breast Clinical Info: Cancer of right female breast Specimen Number: [id number] A, B CPT code: 99983f6,01066t2 METHODOLOGY: Deparaffinized sections of prefer/formalin-fixed tissue or PAP/DQ stained slides are incubated with monoclonal/polyclonal antibodies/oligonucleotide probes. Localization is made via biotin free immunoperoxidase method. Appropriate controls are performed and reacted as expected. Results on target cell population are indicated in the following table: RESULTS: ANTIBODY / CLONE RESULT Block A 1 CK8 ([id number]) negative AE1-3 (AE1/AE3/PCK26) negative Block A 2 CK8 ([id number]) negative AE1-3 (AE1/AE3/PCK26) negative Block A 3 CK8 (52qupjO98) negative AE1-3 (AE1/AE3/PCK26) negative Block B 2 Calponin-1 (CK130N) negative Actin (1A4) negative These tests were developed and their performance characteristics determined by [facility]. They may not have been cleared or approved by the U.S. Food and Drug Administration. The FDA has determined that such clearance or approval is not necessary. The above immunohistochemical/dualISH markers are ordered and reviewed by the Pathologist. INTERPRETATION: A. Right axillary sentinel lymph node, biopsy: Three out of three lymph nodes, negative for carcinoma. B. Right breast, lumpectomy: Invasive ductal carcinoma. AM. 12/11/2023
--- NOTE | 2023-12-05 08:03 | NM_ITS ---
PROCEDURE: NUCLEAR MEDICINE Injection [place] Node - RIGHT breast(s). REASON FOR EXAM: Female, 63 years old. Right breast cancer. TECHNIQUE: [place] node localization using radionuclide methods of the RIGHT breast(s) was performed following subcutaneous administration of 1.2 mCi of of sulfur colloid Tc-99m. COMPARISON STUDIES : NM - None. CR - Not available for review at this time. CT - Not available for review at this time. MR - Not available for review at this time. US - Not available for review at this time. FINDINGS: 1.2 mCi of technetium labeled sulfur colloid was injected subcutaneously in the periareolar region of the right breast for sentinel node imaging. NM/Lymph Node Injection Only IMPRESSION: 1.2 mCi of technetium labeled sulfur colloid was injected subcutaneously in the periareolar region of the right breast for sentinel node imaging. Electronically Signed: Austin Ying MD at 8:58 EDT ,
[2023-12-05] MEDS: Lactated Ringers 1,000 ML 15 ML IV (08:17)
--- NOTE | 2023-12-05 08:51 | PCM.PRE.AN2 ---
ASA Classification* ASA Classification ASA Classification: 2 Assessment & Plan Anesthesia* Anesthesia Assessment Anesthesia Assessment: Discussed sedation and/or anesthesia options, risks, benefits, and alternatives with patient/parents/legal guardian/POA. Questions invited. The patient/parents/legal guardian/POA seems to understand and agrees to proceed with anesthesia plan. Reviewed the physical assessment, medical history, allergy history and patient home medications list prior to surgery/procedure/anesthetic and documented any changes. Performed airway and anesthesia risk assessments. Anesthesia Type Anesthesia Type: General Anesthesia Focused Assessment* Temperature: 97 F Pulse Rate: 69 Blood Pressure: 122/71 Respiratory Rate: 16 Pulse Ox: 100 Airway Assessment Mouth opens: >3 cm Mallampati Score: II Focused Labs Anesthesia Preop lab: CBC WBC 6.8 K/mm3 (4.4-11.0) 11/15/23 16:10 RBC 4.08 M/mm3 (4.2-5.4) L 11/15/23 16:10 Hgb 13.4 g/dL (12.0-15.0) 11/15/23 16:10 Hct 39.6 % (37-47) 11/15/23 16:10 Plt Count 329 K/mm3 (150-450) 11/15/23 16:10 CHEMISTRY Potassium 4.0 mmol/L (3.5-5.1) 11/15/23 16:10 Sodium 141 mmol/L (136-145) 11/15/23 16:10 BUN 10 mg/dL (7-18) 11/15/23 16:10 Creatinine 0.78 mg/dL (0.55-1.02) 11/15/23 16:10 Glucose 106 mg/dL (74-106) 11/15/23 16:10 COAG Pre-Assessment Diagnosis/Proposed Procedure Planned Operative Procedure(s): (R) Breast, Lumpectomy, SNL bx, blue dye & radiotracer Anesthesia History Anesthesia History - labor and delivery registered nurse: Anesthesia History - labor and delivery registered nurse Hx Hospitalization No 11/22/23 09:14 Any Problems With Anesthesia No 11/22/23 09:14 Cholinesterase deficiency No 11/22/23 09:14 You/Your Family Experience No 11/22/23 09:14 fever (hyperthermia) with Relationship Recent Exposure to Contagious No 12/05/23 08:13 Disease Does patient have nerve No 11/22/23 09:14 stimulator Patient instructed to have device shut off --Does patient have Pacemaker No 12/05/23 08:13 or ICD? When Was Last Pacemaker Check QUESTION #4 FULL TEXT: You/Your Family Experience fever (hyperthermia) with Anesthesia Last Oral Intake Last Oral intake: Last Oral Intake NPO since 04:30 12/05/23 08:13 Meds taken in AM with sips of Yes 12/05/23 08:13 water? Meds patient instructed to take am of surgery PONV PONV - labor and delivery registered nurse: PONV - labor and delivery registered nurse Female Yes 11/22/23 09:14 HX of Motion Sickness No 11/22/23 09:14 HX of N/V After Surgery No 11/22/23 09:14 Non-Smoker No 11/22/23 09:14 Duration of Surgery greater No 11/22/23 09:14 than 60 minutes Number of Risk Factors 1 11/22/23 09:14 PONV Score Low Risk 11/22/23 09:14 Height & Weight Height & Weight: Anesthesia: Height & Weight Height 5 ft 1 in 12/05/23 08:13 Weight: 50 kg 12/05/23 08:13 Body Mass Index (BMI) 20.8 12/05/23 08:13 Respiratory Assessment Respiratory Assessment - labor and delivery registered nurse: Respiratory Tract Infection Hx - labor and delivery registered nurse Hx Respiratory Tract Infection No 11/22/23 09:14 STOP Sleep Apnea STOP Sleep Apnea - labor and delivery registered nurse: STOP Sleep Apnea - labor and delivery registered nurse Hx Hypertension Yes: CONTROLLED WITH MED 11/22/23 09:14 Hx Sleep Apnea No 11/22/23 09:14 CPAP BIPAP Do you snore loudly (louder No 11/22/23 09:14 than talking or can be heard Do you often feel tired/ No 11/22/23 09:14 fatigued/ sleepy during daytime? Has anyone observed you stop No 11/22/23 09:14 breathing during sleep? STOP Results Negative 11/22/23 09:14 QUESTION #5 FULL TEXT : Do you snore loudly (louder than talking or can be heard through closed doors)? Tobacco Use History Tobacco Use History - labor and delivery registered nurse: Tobacco Use History - labor and delivery registered nurse Tobacco Use Smoking Status Current every day smoker 11/22/23 09:14 Hx Tobacco Use Yes 11/22/23 09:14 Years Smoking Packs Smoked per Day 0.5 11/22/23 09:14 Smoking Cessation Date was within the last 15 years Hx Smoking Cessation Date Hx Smoking Cessation No 11/22/23 09:14 Counseling Hematologic Medial History Hematologic Hx - labor and delivery registered nurse: Hematologic Medical Hx - property preservation specialist Hx of Blood Transfusion No 11/22/23 09:14 Hx of Transfusion in last 3 No 11/22/23 09:14 Months Date of Last Transfusion (if within last 3 months) Ever experience any problems No 11/22/23 09:14 with transfusion(s)? Specify any problems Hx of Preganancy in last 3 N/A 11/22/23 09:14 Months Nurse Filling Out Transfusion NBUCHER 11/22/23 09:14 & Questions: Date: 11/22/23 11/22/23 09:14 Time: 09:15 11/22/23 09:14 Patient unable to answer at this time (ie. confused, unrespo /Reproduction History /Reproductive History - labor and delivery registered nurse: /Reproductive Hx- labor and delivery registered nurse Hx Now No 11/22/23 09:14 Gestational Age (in weeks): EDC: Hx Hx Para Hx Section SAB No 11/22/23 09:14 Active Medications Active Medications: Current Medications Generic Name Dose Route Start Last Admin Trade Name Freq PRN Reason Stop Dose Admin Clindamycin Phosphate 900 mg in 50 mls @ 75 mls/hr 12/05/23 11:00 Cleocin IV 12/05/23 11:39 PREOP ONE Lactated Ringer's 1,000 mls @ 15 mls/hr 12/05/23 08:15 12/05/23 08:17 IV 15 mls/hr .Q48H CARMELA Administration PFSH Medical History Wears glasses Wears dentures Post-menopausal Cancer Arthritis High cholesterol GERD (gastroesophageal reflux disease) Smoker Cancer of right female breast Colorectal polyps Mixed hyperlipidemia Moderate episode of recurrent major depressive disorder Sleep difficulties Carpal tunnel syndrome HTN (hypertension) GERD without esophagitis Snoring Rectal pressure Elevated fasting glucose Anxiety Wrist pain Home Medications ?Medication ?Instructions ?Recorded ?Last Taken ?Type amlodipine 5 mg tablet 5 mg PO DAILY 05/09/23 12/05/23 History pantoprazole 40 mg tablet,delayed 40 mg PO DAILY 05/09/23 12/05/23 History release fluoxetine 20 mg tablet 20 mg PO QDAY 09/05/23 12/05/23 History hydroxyzine HCl 50 mg tablet 50 mg PO QHS 11/13/23 Unknown History bupropion HCl 150 mg tablet,12 hr 150 mg PO BID 11/15/23 12/04/23 History sustained-release (Wellbutrin SR) lactobacillus combination no.9 4 4,000 mmu cells PO QDAY 11/15/23 Unknown History billion cell capsule (Adult 50 Plus Probiotic) multivitamin 1 tab PO QODAY 11/15/23 Unknown History Allergy/AdvReac Type Severity Reaction Status Date / Time Penicillins (PCN) Allergy Rash Verified 12/05/23 08:12 Family History Mother Breast cancer Osteoporosis Father Diabetes Heart disease Hypertension Grandmother Thyroid disorder Surgical History History of colonoscopy H/O endoscopy H/O breast biopsy History of Hx of appendectomy History of carpal tunnel release Social History household members: spouse current occupational status: employed 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
--- NOTE | 2023-12-05 09:00 | HP.PCM_ITS ---
History and Physical Date of Admission: 12/05/23 Intake Vital Signs 11/14/2414:10 11/19/2413:13 Height 5 ft 1 in 5 ft 1 in Weight: 111 lb 8 oz 112 lb BMI 21.0 21.1 BP 116/75 132/77 H Blood Pressure Location Lt brachial Rt brachial Position Sitting Sitting Respiration 18 16 Pulse 77 73 Pulse Source Monitor Temp 97.5 F L Pulse Oximetry (%) 97 97 Oxygen Delivery Method room air room air Intake Visit Reasons: DISCUSS BREAST SURGERY Chief Complaint: Breast cancer Porter Sample Case Required: No Is patient in pain?: No Allergies codeine Allergy (Verified 11/20/23 14:14) Rashdoxycycline Allergy (Verified 11/20/23 14:14) VomitingPenicillins (PCN) Allergy (Verified 11/20/23 14:14) Rash Medications ?Medication ?Instructions ?Recorded ?Confirmed ?Type amlodipine 5 mg tablet 5 mg PO DAILY 05/09/23 11/20/23 History pantoprazole 40 mg tablet,delayed 40 mg PO DAILY 05/09/23 11/20/23 History release fluoxetine 20 mg tablet 20 mg PO QDAY 09/05/23 11/20/23 History albuterol sulfate 90 mcg/actuation 2 puff inhalation Q4-6H PRN 11/13/23 11/20/23 History aerosol inhaler hydroxyzine HCl 50 mg tablet 50 mg PO QHS 11/13/23 11/20/23 History bupropion HCl 150 mg tablet,12 hr 150 mg PO BID 11/15/23 11/20/23 History sustained-release (Wellbutrin SR) lactobacillus combination no.9 4 4,000 mmu cells PO QDAY 11/15/23 11/20/23 History billion cell capsule (Adult 50 Plus Probiotic) multivitamin 1 tab PO QAM 11/15/23 11/20/23 History Have you fallen in the past year?: No PFSH Medical History Cancer of right female breast Colorectal polyps Mixed hyperlipidemia Moderate episode of recurrent major depressive disorder Sleep difficulties Carpal tunnel syndrome HTN (hypertension) GERD without esophagitis Snoring Rectal pressure Elevated fasting glucose Anxiety Wrist pain Surgical History H/O endoscopy H/O breast biopsy History of Hx of appendectomy History of carpal tunnel release Family History Mother Breast cancer OsteoporosisFather Diabetes Heart disease HypertensionGrandmother Thyroid disorder Social History household members: spouse current occupational status: employed 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 The patient was diagnosed at [facility] when they did a biopsy. She came here for definitive treatment. She is already seeing oncology. She reports her mother had breast cancer. ROS General General: Yes breast cancer; No weight change, appetite, fatigue, colon cancer or weakness HEENT HEENT: No difficulty swallowing, eye injury, eye surgery, swollen glands or hoarseness Endo Endocrine: No thyroid disease, diabetes mellitus, thyroid cancer, Hair loss, heat intolerance or cold intolerance Skin Skin: No rash or changing moles Breast Breast: No left breast lump, right breast lump, nipple discharge, breast pain, abnormal mammogram, abnormal US or breast enlargement Musc Musculoskeletal: Yes arthritis; No back problems, rheumatoid arthritis, gout or joint pain Cardio Cardiovascular: Yes high blood pressure; No murmur, pacemaker, heart disease, atrial fibrillation, heart attack, heart stent, palpitations, shortness of breat with exertion or chest pain Psych Psychiatric: No depression, anxiety or hearing voices Resp Respiratory: No shortness of breath, No sleep apnea, No cough, No COPD, No asthma, No emphysema and No wheezing Gastro Gastrointestinal: No abdominal pain, No nausea or vomiting, No diarrhea, No constipation, No blood in stool, Yes acid reflux, Yes hemorrhoids, No ulcers, No gallbladder problem and No black,tarry stools Dane Hematologic: No blood thinners, No blood disorders, No bleeding, No anemia and No blood clots Neuro Neurologic: No system reviewed and no additional complaints, except as documented, No as per HPI, No abnormal gait, No abnormal hearing, No abnormal movements, No abnormal speech, No behavioral changes, No burning sensations, No confusion, No convulsions, No disequilibrium, No dizziness, No localized weakness, No frequent falls, No headache(s), No lack of coordination, No loss of vision, No memory loss, No numbness, No other visual disturbances, No radicular pain, No restless legs, No sensory deficit, No syncope, No tingling, No tremor(s), No weakness and No other Exam Const General: cooperative Orientation: alert and oriented x3 HENMT Head: normal to inspection Neck Neck: normal visual inspection and full ROM Chest Chest palpation & inspection: normal inspection of the chest Resp Effort & Inspection: normal respiratory effort Auscultation: clear to auscultation bilaterally Cardio Rate: regular rate Rhythm: regular rhythm GI Inspection: non-distended Palpation: soft and nontender Skin General: no rashes or lesions noted Neuro General: patient alert and patient oriented x3 Extrem General: full ROM Psych Appearance: grossly normal Mental Status: mental status grossly normal Assessment and Plan Assessment and Plan (1) Cancer of right female breast: Status: Acute Qualifiers: Breast location: unspecified site of breast Estrogen receptor status: positive Qualified Code(s): C50.911 - Malignant neoplasm of unspecified site of right female breast; Z17.0 - Estrogen receptor positive status [ER+] Plan: Patient has a small breast cancer on the right. I performed an ultrasound in the office and did localize it in the lower outer quadrant at the 7 o'clock position. I discussed partial mastectomy with sentinel lymph node biopsy with the patient in detail. I went over the differences between mastectomy and partial mastectomy. Patient's genetic testing is pending. I discussed the procedure in detail as well as the risks including but not limited to bleeding, infection, injury other organs, need for further margins or further surgery. Patient understands the risks and is willing to proceed. She will stop her aspirin for 5 days prior to surgery. Sumit Emerson MD Pager: [facility] [address] [place] [address], [address] [place] [address] Office: I have examined the patient and the H&P has been reviewed. There are no clinical changes since date of exam.
--- NOTE | 2023-12-05 09:51 | BI_ITS ---
SURGICAL BREAST SPECIMEN RADIOGRAPH CLINICAL: Document presence of tissue clip marker in biopsy specimen. FINDINGS: Specimen shows presence of tissue clip marker. Electronically Signed: Austin Ying MD at 13:13 EDT , BI/Breast Biopsy Specimen IMPRESSION: undefined
[2023-12-05] MEDS: Clindamycin 900 MG/50 ML BAG 75 MG IV (10:55)
[2023-12-05] MEDS: Isosulfan Blue 1% 5 ML Vial (11:07)
[2023-12-05] MEDS: 0.9% Normal Saline (Pres. free 10 ML Vial (11:07)
--- NOTE | 2023-12-05 11:45 | BREAST_PTH ---
PATHOLOGY RESULTS PATIENT: OFELIA CORONADO LOC: [facility] – [place] U#:[id number] AGE/SX: 63/F ROOM: RE12/05/[address]: Dr. Sumit Emerson MD : 1960 BED: DIS: 12/05/2023 SPEC #: [id number] RECD: 12/05/23 13:38 STATUS: VISH REPeyton #: [id number] CARLITA: 12/05/23 11:[address]: Sumit Emerson DEPT: SURGICAL PATHOLOGY RECD BY: Mir Valverde ENTERED: 12/05/23 13:39 SP TYPE: BREAST OTHR DR: Adeola Ge, ARACELI Tissues: Right breast, NOS Axillary lymph node, NOS Procedures: Frozen Section (charge) Frozen Section Add'l ([facility]) Surgery Specimen Level IV HEADER OPERATION: Breast, lumpectomy, sentinel lymph node blue dye and radiotracer PRE-OP DIAGNOSIS: Cancer of right female breast TISSUE SUBMITTED: A- [place] lymph node- right axilla, B- Right breast tissue * short - superior, long- lateral* section with margins FROZEN SECTION DIAGNOSIS A. Right axillary sentinel lymph node, biopsy: Three out of three lymph nodes, negative for carcinoma. B. Right breast, lumpectomy: Mass measures 0.7 x 0.5cm and is located 0.5cm from closest ( superior ) margin of excision. . 12/05/2023 MICROSCOPIC DIAGNOSIS A. Right axillary sentinel lymph node, biopsy: Three out of three lymph nodes, negative for carcinoma. See comment. B. Right breast lumpectomy: Invasive ductal carcinoma. See synoptic report below. . 12/10/2023 COMMENT B. BREAST CANCER SUMMARY Procedure: Excision with wire guidance Specimen: Type: Partial breast Size: 4.5 x 3.6 x 1.5cm Laterality: Right Tumor site: Right breast Size: 0.7 x 0.5 x 0.5cm Focality: Single focus of carcinoma Histologic type: Invasive ductal carcinoma. Histologic grade ([place] grade): Glandular/tubular differentiation score: 1 Nuclear pleomorphism score: 2 Mitotic count score: 1 Overall grade: 1 (score of 4) Lymph vascular invasion: Ductal Carcinoma In Situ: Not identified Lobular Carcinoma In Situ: Not present Tumor extension: Skin: No skin present Nipple: No nipple present Skeletal muscle: No skeletal muscle present Margins Involved by Invasive Carcinoma: Distance from closest margin: 0.5 cm from closest (superior) margin of excision Lymph Nodes: Number of sentinel lymph nodes examined: 3 Total number of lymph nodes examined: 3 No evidence of macro metastases, micro metastases or isolated tumor cells Microcalcifications: Present with non-neoplastic tissue Treatment Effect: UnknownLymph vascular invasion: Not identified Additional Pathologic Findings: Fibrocystic change, focal intraductal hyperplasia without atypia Ancillary Studies: Previously performed on same tumor ([id number] at [facility]) ER: positive (91-100%), strong staining [place]: positive (41-50%, ), moderate staining [id number]: negative (1+) Clinical History: Mass of breast PATHOLOGIC STAGE: T1b N0 Mx The above summary is in compliance with [employer] [place] [employer] (CAP) Cancer Protocol Checklist and [place] Joint Committee on Cancer (AJCC) Staging Manual, 8th Ed. Immunohistochemistry ([id number]) supports the above diagnosis. Case has been reviewed in consultation with Dr. Medina who concurs with the above diagnosis. IDC:[id number] MICROSCOPIC DESCRIPTION Slides are reviewed. GROSS DESCRIPTION A. Received fresh for frozen section consultation labeled with the patient's name is a specimen designated Right axillary sentinel lymph node. The specimen consists of three irregular fragments of lemus-yellow fibrofatty tissue. The smaller fragment measures 1.0cm in greatest dimension. The second fragment measures 1.2cm in greatest dimension and the third fragment measures 3.3cm in greatest dimension. Dissection of the tissue reveals three nodules resembling lymph nodes. The two smaller nodules each measure 0.6cm in greatest dimension. The largest nodule measures 2.5cm in greatest dimension. Nodules are submitted in their entirety for frozen section consultation as follows: Block #1- Two nodules, Block #2,3- Bisected largest nodule. B. Received fresh for frozen section consultation labeled with the patient's name is a specimen designated Right breast. The specimen consists of an irregular fragment of oriented lemus-yellow fibrofatty tissue containing a wire and measuring 4.5 x 3.6 x 1.5cm and weighing 10.6gm. The specimen is differentially inked as follows: The specimen is inked as follows: anterior - yellow, posterior - black, superior - blue, inferior - green, medial - red and lateral - orange. Serial sections reveal a firm lemus-white nodule measuring 0.7 x 0.5 x 0.5cm. This nodule is located 0.5cm from the closest (superior) margin fixation. The proximal area of the lesion to its closest margin is conveyed to the surgeon intraoperatively. AM.mr 12/05/2023The specimen is serially sectioned and submitted for permanent sections as follows: 1&2- nodular with adjacent inked margins, 3-9- remainder of the specimen. NOTE: The specimen is submitted after additional fixation. AM/mr 12/06/2023 TC:0 CPT:82579a2,[id number] ADDENDUM ADDENDUM 01/11/2024 14:00 ONCOTYPE DX BREAST RECURRENCE SCORE REPORT RECURRENCE SCORE RESULT: 14 DISTANT RECURRENCE RISK AT 9 YEARS: 4% GROUP AVERAGE ABSOLUTE CHEMOTHERAPY BENEFIT: <1% Please see complete above mentioned consultation report in EMR
[2023-12-05] MEDS: Bupivacaine 0.25% 30 ML Vial (11:50)
--- NOTE | 2023-12-05 11:51 | OP.PCM_ITS ---
Problems Associated Problem List Diagnoses (1) Cancer of right female breast: Report of Operation Date of Procedure: 12/05/23 Pre-Operative Diagnosis: Right breast cancer lower outer quadrant Post-Operative Diagnosis: Same Surgery/Procedure Performed:: 1. Right partial mastectomy 2. Stereotactic guided wire localization 3. Injection of blue dye 4. [place] lymph node biopsy of the right axilla Type of Anesthesia: General/Regional Specimen's removed: 1. Breast mass with short stitch superior and long stitch lateral 2. Right axillary lymph nodes Estimated Blood Loss (mL): 10 Description of Procedure: Patient was taken to the stereotactic room and placed on the stereotactic table. The right breast was compressed and the clip was localized. Stereotactic views were obtained and clip was targeted. Next the breast was prepped and injected with local anesthetic. The wire was guided into the breast and then deployed. Mammograms were obtained. Patient was brought back to the operating room and general anesthesia was induced. The right breast was inspected with ultrasound and ensure that the mass was near the wire. Next the nipple was prepped with alcohol and 5 cc of Lymphazurin was injected in the retroareolar space followed by 5 cc of saline and then a massage was performed. Next the right breast and axilla were prepped and draped in usual sterile fashion. An incision was marked and injected local anesthetic in the right axilla and then made with a scalpel. It was deepened to the fascia of the axilla and this was entered sharply. The neoprobe was used to localize 3 lymph nodes which were blue and radioactive and they were all removed with clips and sharp dissection. There was no further blue or radioactive or palpable lymph nodes in the axilla. Next the area was irrigated and suctioned dry and then 3-0 Vicryl sutures were used to close the dermis. Next an incision was marked on the breast and injected with local anesthetic. Incision was made and then the wire was brought into the incision. Flaps were raised superiorly and inferiorly. The mass was grasped and dissected circumferentially using electrocautery. The cavity was irrigated and electrocautery was used to maintain hemostasis. The mass was sent for x-ray and contained the clip and the entire wire. The lymph nodes came back negative. After margins were negative the incision was closed with interrupted 3-0 Vicryl sutures. The skin incisions were then closed with running 4-0 Monocryl suture and Dermabond was applied to both. Synoptic Portion: Element Response Options Operation performed with curative intent. Yes Tracer(s) used to identify sentinel nodes in the upfront surgery (non-neoadjuvan t) setting (select all that apply). Dye and radioactive tracer Tracer(s) used to identify sentinel nodes in the neoadjuvant setting (select all that apply). N/A All nodes (colored or non-colored) present at the end of a dye-filled lymphatic channel were removed. Yes All significantly radioactive nodes were removed. Yes All palpably suspicious nodes were removed. Yes Biopsy-proven positive nodes marked with clips prior to chemotherapy were identified and removed. N/A Admit VTE Documentation VTE Mechan Device Prophylaxis: SCD's
--- NOTE | 2023-12-05 11:58 | DCINST_ITS ---
Discharge Instructions Procedure Breast Surgery Diet Discharge Diet: No restrictions Activity Discharge Activity: May Not Drive (for 2-3 days or while taking narcotic pain medications.) May shower in (days): 1 Lifting Restrictions: 15 lbs for 1 week Dressing / Incision Call your doctor if your incision/area has: Continuous Slow Oozing, Sudden Increased Bleeding, Increased Pain/ Swelling, Increased Redness, Foul Smelling Discharge and Swelling at the incision site Call your doctor if you observe: Fever of 101 or Higher Suture Line Care: Avoid Pulling/Pushing and Avoid Pinching/Bending Cleanse incision/area with: Soap & Water Additional Dressing/Incision Instructions:: Wear supportive bra until follow-up Follow Up Care Please Follow Up With: Sumit Emerson MD When: Please call to schedule 2 week follow up appointment. [phone] Test Results: Test results from this visit will be discussed in further detail at your follow- up appointment, if applicable. Discharge Plan Admission Attending Provider: Sumit Emerson Primary Care Provider: Adeola Ge Instructions Print Language: Armenian Discharge Orders/Prescriptions Prescriptions: New oxycodone 5 mg tablet 5 - 10 mg PO Q6H PRN (Reason: pain) 5 Days Qty: 14 0RF No Action fluoxetine 20 mg tablet 20 mg PO QDAY bupropion HCl [Wellbutrin SR] 150 mg tablet sustained-release 12 hr 150 mg PO BID multivitamin Tablet 1 tab PO QODAY Adult 50 Plus Probiotic 4 billion cell capsule 4,000 mmu cells PO QDAY Rx Instructions: administer with a meal hydroxyzine HCl 50 mg tablet 50 mg PO QHS amlodipine 5 mg tablet 5 mg PO DAILY pantoprazole 40 mg tablet,delayed release (DR/EC) 40 mg PO DAILY Referrals / Follow Up: Adeola Ge, [facility] [Primary Care Provider] - Disposition Disposition (needs filled in before D/C Order can be placed): Home, Self Care
--- NOTE | 2023-12-05 12:24 | PCM.POST.ANE ---
Anesthesia: Postop Eval I Current Vital Signs Temperature: 97.8 F Pulse Rate: 57 Blood Pressure: 118/81 Respiratory Rate: 12 Pulse Ox: 100 Oxygen Delivery Method: Room Air Assessment Airway patent: Yes Spontaneous unlabored respirations: Yes Mental status: Asleep nausea: No Vomiting: No Anesthesia Complication: No Fluid Hydration Crystalloid volume administer (ml): 600 Total IV fluid infused: 600 Progress Note Anesthesia document: Postop Eval 1 completed: Yes
[2023-12-05] MEDS: Acetaminophen 500 MG Tablet 1000 MG PO (13:01)
--- NOTE | 2023-12-05 13:50 | PCM.POSTANE2 ---
Anesthesia Postop Eval I Sum Postop Eval Completion status Anesthesia document: Postop Eval 1 completed: Yes Anesthesia Postop Eval I Summary Anesthesia Postop Eval I Summary: Anesthesia Postop Eval I: Assessment Summary Airway patent Yes 12/05/23 12:25 [email or web address] Spontaneous unlabored Yes 12/05/23 12:25 [email or web address] respirations Mental status Asleep 12/05/23 12:25 [email or web address] nausea No 12/05/23 12:25 [email or web address] Vomiting No 12/05/23 12:25 [email or web address] Anesthesia Postop Eval I: Fluid Summary Crystalloid volume administer 600 12/05/23 12:25 [email or web address] (ml) Colloids volume administered ( ml) Blood Product volume administered (ml) Total IV fluid infused 600 12/05/23 12:25 [email or web address] Anesthesia Postop Eval I: Summary Notes Anesthesia Complication No 12/05/23 12:25 [email or web address] Anesthesia Complication Comment: Post-operative progress note Anesthesia: Postop Eval II Evaluation Mental status: Awake and Calm Pain Level: 1 nausea: No Vomiting: No Complications Anesthesia Complication: No
== END 2023-12-05 13:39 | disposition home or self-care (01) ==
LOC: SDC 07:56 → AC 07:59
PROVIDERS: PCP Nurse Practitioner Family; Referring Provider Surgery; Visit Provider Surgery
PROC: (CPT 19301; principal; 2023-12-05 10:45)
DX: C50.911 Malignant neoplasm of unspecified site of right female breast (principal); Z17.0 Estrogen receptor positive status [ER+]; E78.2 Mixed hyperlipidemia; I10 Essential (primary) hypertension; Z80.3 Family history of malignant neoplasm of breast; F17.210 Nicotine dependence, cigarettes, uncomplicated; K21.9 Gastro-esophageal reflux disease without esophagitis; Z90.49 Acquired absence of other specified parts of digestive tract; F41.9 Anxiety disorder, unspecified
CPT/HCPCS: 19301; 38525; 38900; 00404; 19281; 38792; 76098; 88305; 88331; 88332; 88341; 88342; A4648; A9541; J7120; J2405; J3490; Q9968

== ENCOUNTER → 2024-03-05 | Outpatient (CLI) | payer MEDICAID, SELFPAY ==
--- NOTE | 2024-03-05 12:32 | BD_ITS ---
STUDY: DUAL ENERGY X-RAY ABSORPTIOMETRY / DXA REASON FOR EXAM: Female, 63 years old. Screening for osteoporosis TECHNIQUE: Bone Mineral Density (BMD) measurements of lumbar spine and bilateral hips were obtained. COMPARISON: None. FINDINGS: Lumbar Spine (L1-L4): g/cm2 (0.650) / T-score (-3.9) / Z-score (-2.4) Findings are suggestive of osteoporosis with a high fracture risk. Left Femur Total: g/cm2 (0.691) / T-score (-2.1) / Z-score (-1.0) Left Femoral Neck: g/cm2 (0.520) / T-score (-3.0) / Z-score (-1.6) Right Femur Total: g/cm2 (0.669) / T-score (-2.2) / Z-score (-1.2) Right Femoral Neck: g/cm2 (0.532) / T-score (-2.9) / Z-score (-1.5) BD/Dexa Bone Density Study IMPRESSION: The patient is considered osteoporotic as outlined below according to World Lorenzo Organization (WHO) criteria with a high fracture risk. Reference Information: The T-score is the number of standard deviations above or below the standard which is normal for young adults at their peak bone mineral density. The World Health Organization (WHO) interprets the T-scores as follows: Above -1 Normal bone density Between -1 and -2.5 Osteopenia Equal to / or below -2.5 Osteoporosis As a practical clinical guideline, osteopenia may be graded as follows: Mild -1 through -1.5 Moderate -1.6 through -2.0 Severe -2.1 through -2.4 The Z-score is the number of standard deviations above or below age-matched controls. A Z-score of less than -1.5 would be considered abnormal. References: 1. NIH Osteoporosis and Related Bone Diseases www osteo.org 2. International Society for Clinical Densitometry www iscd.org 3. National Osteoporosis Foundation www nof.org Electronically Signed: Austin Ying MD at 10:48 EST ,
== END | disposition home or self-care (01) ==
LOC: OPBD 12:05
PROVIDERS: PCP Nurse Practitioner Family; Referring Provider Nurse Practitioner Family; Visit Provider Nurse Practitioner Family
DX: Z13.820 Encounter for screening for osteoporosis (principal); Z78.0 Asymptomatic menopausal state
CPT/HCPCS: 77080

== ENCOUNTER → 2024-06-04 | Outpatient (CLI) | payer MEDICAID, SELFPAY ==
--- NOTE | 2024-06-04 09:00 | BI_ITS ---
EXAM: DIAG MAMM W/CAD, BILAT; BREAST LIMITED UNILATERAL; BREAST COMPLETE UNILATERAL; BILAT BRST GLORIA STAND ALONE 06/04/2024 CLINICAL HISTORY: 63-year-old female presents with diffuse right breast pain and swelling. Personal history of right breast cancer (invasive ductal carcinoma), status post lumpectomy. Family history of breast cancer in her mother at age 48. TECHNIQUE: Bilateral Diagnostic digital breast tomosynthesis with 2D and 3D images. Computer aided detection. Also, targeted bilateral breast ultrasounds were performed. COMPARISON: Prior exam(s) dated 09/17/2023, 10/16/2023, 10/31/2023.. FINDINGS: MAMMOGRAM: TISSUE DENSITY: The breast tissue is extremely dense which lowers the sensitivity of mammography. The mammogram demonstrates that the patient has dense breasts. Supplemental screening with MRI may be considered for further evaluation. Bilateral Breast Mammographic Findings: Right breast: There are postsurgical changes in the lower/slightly outer right breast at middle depth, as well as overlying skin thickening in the lower right breast. There are postsurgical changes in the right axilla. Left breast: There is an asymmetry in the medial left breast at middle depth visualized on the CC view. ULTRASOUND: Right breast: The ultrasound performed of the retroareolar region and all 4 quadrants of the right breast demonstrate no suspicious sonographic findings to account for the patient's diffuse breast pain and swelling. Left breast: Ultrasound performed of the medial left breast demonstrates no suspicious sonographic findings to account for the findings seen on mammogram. The mammographic finding likely represents benign dense breast tissue. BI/DIAG MAMM W/CAD, BILAT IMPRESSION: 1. No suspicious mammographic or sonographic findings to account for the patie nt's right breast pain and swelling. Clinical management is recommended. 2. Benign postsurgical changes in the right breast and right axilla. 3. No evidence of malignancy in the left breast. Right Breast: BIRADS 2 BENIGN FINDING. Left Breast: BIRADS 1 NEGATIVE. OVERALL FINAL ASSESSMENT: BIRADS 2 BENIGN FINDING. RECOMMENDATION: Routine annual follow-up in 1 Year A letter with findings and recommendations will be mailed to the patient. Reading Location: [id number]
--- NOTE | 2024-06-04 14:30 | BI_ITS ---
EXAM: DIAG MAMM W/CAD, BILAT; BREAST LIMITED UNILATERAL; BREAST COMPLETE UNILATERAL; BILAT BRST GLORIA STAND ALONE 06/04/2024 CLINICAL HISTORY: 63-year-old female presents with diffuse right breast pain and swelling. Personal history of right breast cancer (invasive ductal carcinoma), status post lumpectomy. Family history of breast cancer in her mother at age 48. TECHNIQUE: Bilateral Diagnostic digital breast tomosynthesis with 2D and 3D images. Computer aided detection. Also, targeted bilateral breast ultrasounds were performed. COMPARISON: Prior exam(s) dated 09/17/2023, 10/16/2023, 10/31/2023.. FINDINGS: MAMMOGRAM: TISSUE DENSITY: The breast tissue is extremely dense which lowers the sensitivity of mammography. The mammogram demonstrates that the patient has dense breasts. Supplemental screening with MRI may be considered for further evaluation. Bilateral Breast Mammographic Findings: Right breast: There are postsurgical changes in the lower/slightly outer right breast at middle depth, as well as overlying skin thickening in the lower right breast. There are postsurgical changes in the right axilla. Left breast: There is an asymmetry in the medial left breast at middle depth visualized on the CC view. ULTRASOUND: Right breast: The ultrasound performed of the retroareolar region and all 4 quadrants of the right breast demonstrate no suspicious sonographic findings to account for the patient's diffuse breast pain and swelling. Left breast: Ultrasound performed of the medial left breast demonstrates no suspicious sonographic findings to account for the findings seen on mammogram. The mammographic finding likely represents benign dense breast tissue. BI/Bilat Brst Gloria Stand Alone IMPRESSION: 1. No suspicious mammographic or sonographic findings to account for the patie nt's right breast pain and swelling. Clinical management is recommended. 2. Benign postsurgical changes in the right breast and right axilla. 3. No evidence of malignancy in the left breast. Right Breast: BIRADS 2 BENIGN FINDING. Left Breast: BIRADS 1 NEGATIVE. OVERALL FINAL ASSESSMENT: BIRADS 2 BENIGN FINDING. RECOMMENDATION: Routine annual follow-up in 1 Year A letter with findings and recommendations will be mailed to the patient. Reading Location: [facility]
== END | disposition home or self-care (01) ==
LOC: OPBI 14:15
PROVIDERS: PCP Nurse Practitioner Family; Referring Provider Nurse Practitioner Family; Visit Provider Nurse Practitioner Family
DX: N63.0 Unspecified lump in unspecified breast (principal); Z85.3 Personal history of malignant neoplasm of breast
CPT/HCPCS: 77062; 76641; 76642; 77066; G0279

== ENCOUNTER → 2024-06-12 | Outpatient (CLI) | payer MEDICAID, SELFPAY ==
--- NOTE | 2024-06-12 12:05 | RAD_ITS ---
PROCEDURE: Sacrum/coccyx radiographs, three views 06/12/2024 REASON FOR EXAM: SACRUM PAIN TECHNIQUE: Three views of the sacrum/coccyx were obtained. COMPARISON: None available FINDINGS: Three views of the sacrum/coccyx were obtained. The bones are osteopenic. Moderate degenerative changes lower lumbar spine. No displaced pelvic or proximal femur fracture. Mild degenerative changes in the hip joints. No displaced fracture of the sacrum/coccyx is demonstrated. RAD/Sacrum-Coccyx min 2 Views IMPRESSION: Osteopenia. No displaced fracture of the sacrum/coccyx. Included portions of the pelvis and proximal femurs are intact. If there is persistent pain or clinical concern, follow-up MRI evaluation may b e considered. Reading Location: [facility]
== END | disposition home or self-care (01) ==
PROVIDERS: PCP Nurse Practitioner Family; Referring Provider Nurse Practitioner Family; Visit Provider Nurse Practitioner Family
DX: C50.919 Malignant neoplasm of unspecified site of unspecified female breast (principal); M53.3 Sacrococcygeal disorders, not elsewhere classified
CPT/HCPCS: 36415; 72220; 80053; 85025

== ENCOUNTER → 2024-06-17 | Outpatient (CLI) | payer MEDICAID, SELFPAY ==
--- NOTE | 2024-06-17 10:49 | RAD_ITS ---
EXAM: XR Left Foot Complete, 3 or More Views CLINICAL INDICATION: PAIN, SWELLING TECHNIQUE: Frontal, lateral and oblique views of the left foot. COMPARISON: No relevant prior studies available. FINDINGS: BONES/JOINTS: See below. SOFT TISSUES: Soft tissue swelling without acute fracture. No radiopaque foreign body. RAD/Foot min 3 Views IMPRESSION: 1. Soft tissue swelling without acute fracture. 2. If symptoms persist, further evaluation with CT is recommended. Reading Location: [id number]
== END | disposition home or self-care (01) ==
LOC: MTRAD 10:49
PROVIDERS: PCP Nurse Practitioner Family; Referring Provider Physician Assistant; Visit Provider Physician Assistant
DX: R52 Pain, unspecified (principal)
CPT/HCPCS: 73630